=== PATIENT | female | born 1940 | race Caucasian/White ===

== ENCOUNTER 2016-08-29 13:35 | Inpatient (IN) | payer OTHER ==
[~2016-08-29] VITALS: Ht 160 cm; Wt 63.5 kg
[~2016-08-29 13:35] MED LIST: ALPR0.2583 PO; AMYL1CAP54 PO; ARIP10TA14 PO; DICY10CA59 PO; DOCU250C PO; HYDR-3698 PO; LUBI8CAP PO; METO-290 PO; OMEP20CA10 PO; ONDA4TAB5 PO; PRO40 PO; PSYL3.4P6 PO; SERT50TA12 PO; SIME80TA PO; SIMV10TA2 PO
[2016-08-29 13:52] VITALS: BP 148/69; PULSE 91; RESP 20; TEMP 97.8; O2SAT 97
--- NOTE | 2016-08-29 13:55 | NUR ---
Pt placed to ER bed 02 and to gown. Pt c/o sudden onset of generalized abdominal pain. BSx4, hyperactive. LBM x 2 days. Denies N/V/D. Pt's at bedside.
--- NOTE | 2016-08-29 14:00 | NUR ---
Dr. Gibson at bedside to assess pt.
[2016-08-29] MEDS ORDERED: PROCHLORPERAZINE EDISYLATE 10 MG/2 ML VIAL IVP ONE (14:15)
[2016-08-29] MEDS ORDERED: KETOROLAC TROMETHAMINE 30 MG VIAL IVP ONE (14:15)
[2016-08-29] MEDS ORDERED: ONDANSETRON HCL 4 MG/2 ML VIAL IVP ONE (14:15)
[2016-08-29] MEDS ORDERED: NACL 0.9% 1,000 ML IV ONE (14:15)
--- NOTE | 2016-08-29 14:20 | NUR ---
# 20 gauge angiocath placed to RAC. Use of asceptic technique. Opsite placed over site. Blood return noted. Blood for lab drawn from site. Flushed with 10 cc of normal saline. No evidence of infiltration noted. Patient tolerated well.
[2016-08-29 14:31] LABS: BASOPHILS % (AUTO) 0.5 % (0.0-2.0); EOSINOPHILS # (AUTO) 0.1 K/uL (0.0-0.4); EOSINOPHILS % (AUTO) 1.9 % (0.0-4.0); HEMATOCRIT 33.2 % (36-48); HEMOGLOBIN 11.6 g/dL (12.0-16.0); LYMPHOCYTES % (AUTO) 33.7 % (20.5-51.5); MEAN CORPUSCULAR HEMOGLOBIN 34 pg (27-31); MEAN CORPUSCULAR HGB CONC 35 % (32-36); MEAN CORPUSCULAR VOLUME 96 fL (79.0-98.0); MONOCYTES # (AUTO) 0.5 K/uL (0.0-1.0); MONOCYTES % (AUTO) 7.7 % (1.7-9.3); NEUTROPHILS # (AUTO) 3.4 K/uL (1.8-7.7); NEUTROPHILS % (AUTO) 56.2 % (40.0-70.0); PLATELET COUNT (AUTO) 260 K/uL (130-430); RED BLOOD CELL COUNT(AUTO) 3.47 MIL/uL (4.2-6.2); RED CELL DISTRIBUTION WIDTH 12.3 % (9.0-15.0)
[2016-08-29 14:39] LABS: ANION GAP 6 (5-15); CALCIUM 8.7 mg/dL (8.4-11.0); CHLORIDE 103 mmol/L (98-107); CREATININE 0.99 mg/dL (0.55-1.30); GLUCOSE 221 mg/dL (70-99); POTASSIUM 4.4 mmol/L (3.5-5.1); SODIUM SERUM 135 mmol/L (136-145); UREA NITROGEN, BLOOD 30 mg/dL (8-21)
--- NOTE | 2016-08-29 14:40 | NUR ---
Pt to CT via stretcher.
[2016-08-29 14:42] LABS: PROTHROMBIN TIME 10.7 SECS (9.5-12.5)
[2016-08-29 14:44] LABS: ALANINE AMINOTRANSFERASE 28 U/L (12-78); ALBUMIN 3.8 g/dL (3.4-4.8); AMYLASE 86 U/L (0-100); LIPASE 259 U/L (73-393); TOTAL BILIRUBIN 0.3 mg/dL (0.0-1.0); TOTAL PROTEIN, SERUM 7.1 g/dL (6.4-8.3)
--- NOTE | 2016-08-29 14:55 | NUR ---
Pt returns from CT. No needs verbalized at this time.
--- NOTE | 2016-08-29 15:15 | NUR ---
Pt resting quietly with eyes closed. Even and non-labored respirations. VSS. Pt.'s at bedside.
[2016-08-29 15:17] LABS: ASPARTATE AMINOTRANSFERASE 20 U/L (10-37)
--- NOTE | 2016-08-29 16:30 | NUR ---
Pt placed on bedside commode multiple times. Pt unable to void.
--- NOTE | 2016-08-29 16:42 | NUR ---
# 14 FR In and Out catheter with use of sterile technique. Immediate return of 50 ml clear yellow urine urine noted. Urine sample collected and sent to lab. Pt tolerated procedure well. Patient was unable to void on BSC though she does feel the urge to.
[2016-08-29 17:11] LABS: BILIRUBIN,URINE NEGATIVE (NEGATIVE); BLOOD, URINE NEGATIVE (NEGATIVE); CLARITY/URINE CLEAR (CLEAR); COLOR,URINE YELLOW (YELLOW); GLUCOSE,URINE NEGATIVE (NEGATIVE); KETONES,URINE NEGATIVE (NEGATIVE); LEUKOCYTE ESTERASE ,URINE NEGATIVE (NEGATIVE); NITRITE, URINE NEGATIVE (NEGATIVE); PROTEIN URINE NEGATIVE (NEGATIVE); UROBILINOGEN,URINE 0.2 (0.2-1.0)
[2016-08-29] MEDS ORDERED: MAG HYDROX/AL HYDROX/SIMETH 30 ML, LIDOCAINE VISCOUS 2% 15ML (PO) 10 ML, BELLADONNA ALK... PO ONE ×3 (17:30)
--- NOTE | 2016-08-29 18:00 | NUR ---
Pt resting quietly, eyes closed, even and non-labored respirations. Daughter at bedside, no needs verbalized. VSS.
--- NOTE | 2016-08-29 19:00 | NUR ---
Patient will be admitted to care of Dr. Llanos. Admitted to Med/Surg unit. Will go to room 135A. Belongings list completed. Summary report printed. Report given to LYNDSEY Damon.
[2016-08-29 19:08] VITALS: BP 158/69; PULSE 80; RESP 12; TEMP 98.3; O2SAT 96
--- NOTE | 2016-08-29 19:08 | NUR ---
Admission Note Received patient from ER with diagnosis of acute abdominal pain. Initial Plan of Care discussed-patient verbalized understanding. Family at bedside. Oriented to room, call light, pain management and safety.
[2016-08-29 19:14] VITALS: BP 158/69; PULSE 67; RESP 12; TEMP 98.3; O2SAT 97
[2016-08-29] MEDS ORDERED: ONDANSETRON HCL 4 MG/2 ML VIAL IVP PRN (19:45)
--- NOTE | 2016-08-29 20:00 | NUR ---
Initial PM Note Admission Assessment completed. No acute distress noted. No c/o pain at this time. No facial grimacing noted. Saline Lock is patent in RAC. Pt has Mika Score of 18. Will turn and reposition pt q 2hrs. Incontinent care will be provided as needed and Z guard will be utilized with incontinent care. Fall precautions are in place. Call light is with pt. Bed is in the lowest and locked positions. Three side rails are up and Bed alarm is on.
--- NOTE | 2016-08-29 20:20 | NUR ---
Consultation paged Reason for consultation: Omega. Renal Stones Was consult called: Yes Person who was notified: Ruth Consulting Physician: Guido Villareal; Nahid Quan is on-call. Recruiting Specialist Specialty: Urology Recruiting Specialist
[2016-08-29] MEDS: LUBIPROSTONE 8 MCG CAPSULE PO SCH (21:00)
--- NOTE | 2016-08-29 21:00 | NUR ---
Medication not Available HS Amitiza not given because it is not available in all four pyxes in [facility] unit. Also checked with Record Producer who stated it is not available and it can be started in AM.
[2016-08-29] MEDS ORDERED: TAMSULOSIN HCL 0.4 MG CAP PO ONE (21:45)
[2016-08-29] MEDS ORDERED: PANTOPRAZOLE SODIUM 40 MG/VIAL (PROTONIX) IVP ONE (21:45)
[2016-08-29] MEDS: PANTOPRAZOLE SODIUM 40 MG/VIAL (PROTONIX) IVP SCH (21:57)
[2016-08-29] MEDS: KCL 20 mEq in 0.45% NS 1000 mL 1,000 ML IV SCH (21:58)
[2016-08-29] MEDS: SIMVASTATIN 10 MG TABLET PO SCH (21:58)
[2016-08-29] MEDS: ALPRAZolam 0.25 MG TABLET PO SCH (21:58)
[2016-08-29] MEDS: TAMSULOSIN HCL 0.4 MG CAP PO SCH (21:58)
--- NOTE | 2016-08-29 22:30 | NUR ---
IV Restart IV site in RAC noted to be infiltrated and the Angiocath was discontinued intact. Pressure dressing was applied to the site. New IV line was restarted in Rt Hand with Angiocath 22g under sterile technique. Pt tolerated IV restart well. IVF is infusing well at 75ml/hr.
[2016-08-29 23:59] VITALS: BP 140/81; PULSE 68; RESP 20; TEMP 97.2; O2SAT 98
--- NOTE | 2016-08-30 00:30 | NUR ---
Rounds Pt is sleeping comfortably in bed. Fall precautions are in place and IVF is infusing well in Rt Hand.
--- NOTE | 2016-08-30 03:30 | NUR ---
Rounds Pt is resting comfortably in bed. Fall precautions are in place.
[2016-08-30 04:01] VITALS: BP 135/62; PULSE 66; RESP 18; TEMP 97.6; O2SAT 96
--- NOTE | 2016-08-30 04:50 | NUR ---
Rounds Pt is sleeping comfortably in bed. Fall precautions are in place and IVF is infusing well in Rt Hand.
[2016-08-30] MEDS: METOCLOPRAMIDE HCL 10 MG TABLET PO SCH ×3 (06:12→17:15)
--- NOTE | 2016-08-30 06:22 | NUR ---
Closing Note Pt is awake and resting comfortably in bed. No c/o pain or discomfort at this time. IVF is infusing well in RH. All pt's needs were attended to. No fall or injury noted this shift. Will endorse to day shift nurse.
[2016-08-30 06:28] LABS: BASOPHILS % (AUTO) 0.4 % (0.0-2.0); EOSINOPHILS # (AUTO) 0.2 K/uL (0.0-0.4); EOSINOPHILS % (AUTO) 2.5 % (0.0-4.0); HEMATOCRIT 32.4 % (36-48); HEMOGLOBIN 10.8 g/dL (12.0-16.0); LYMPHOCYTES % (AUTO) 32.5 % (20.5-51.5); MEAN CORPUSCULAR HEMOGLOBIN 32 pg (27-31); MEAN CORPUSCULAR HGB CONC 33 % (32-36); MEAN CORPUSCULAR VOLUME 96 fL (79.0-98.0); MONOCYTES # (AUTO) 0.4 K/uL (0.0-1.0); MONOCYTES % (AUTO) 6.8 % (1.7-9.3); NEUTROPHILS # (AUTO) 3.6 K/uL (1.8-7.7); NEUTROPHILS % (AUTO) 57.8 % (40.0-70.0); PLATELET COUNT (AUTO) 235 K/uL (130-430); RED BLOOD CELL COUNT(AUTO) 3.38 MIL/uL (4.2-6.2); RED CELL DISTRIBUTION WIDTH 12.7 % (9.0-15.0); WHITE BLOOD COUNT (AUTO) 6.2 K/uL (4.8-10.8)
[2016-08-30 06:41] LABS: ANION GAP 4 (5-15); CALCIUM 8.5 mg/dL (8.4-11.0); CHLORIDE 107 mmol/L (98-107); CREATININE 0.94 mg/dL (0.55-1.30); GLUCOSE 136 mg/dL (70-99); PHOSPHORUS 3.1 mg/dL (2.7-4.5); POTASSIUM 4.3 mmol/L (3.5-5.1); SODIUM SERUM 137 mmol/L (136-145); UREA NITROGEN, BLOOD 23 mg/dL (8-21)
[2016-08-30 08:00] VITALS: BP 156/73; PULSE 73; RESP 18; TEMP 97.7; O2SAT 98
--- NOTE | 2016-08-30 08:00 | NUR ---
OPENING NOTE: RECEIVED REPORT FROM NIGHT NURSE. PATIENT IS RESTING COMFORTABLY IN BED. NO S/S OF DISTRESS OR SOB. PATIENT IS AWAKE BUT CONFUSED. VITAL SIGNS WNL, ASSESSMENT COMPLETE. PATIENT EDUCATED ON USING CALL LIGHT FOR ASSISTANCE WITH NEEDS. CALL LIGHT IN REACH, BED IN LOWEST POSITION, AND WILL CONTINUE TO MONITOR.
[2016-08-30] MEDS: ENOXAPARIN SODIUM 40 MG/0.4 ML SYRINGE SUBCUT SCH (08:50)
[2016-08-30] MEDS: PANTOPRAZOLE SODIUM 40 MG/VIAL (PROTONIX) IVP SCH (08:50)
[2016-08-30] MEDS: SERTRALINE HCL 50 MG TABLET PO SCH (08:51)
[2016-08-30] MEDS: TAMSULOSIN HCL 0.4 MG CAP PO SCH (08:51)
[2016-08-30] MEDS: ALPRAZolam 0.25 MG TABLET PO SCH ×2 (08:51→21:25)
[2016-08-30] MEDS: ARIPiprazole 5 MG TAB PO SCH (08:51)
[2016-08-30] MEDS: LIPASE/PROTEASE/AMYLASE 1 CAP PO SCH ×3 (08:51→17:15)
[2016-08-30] MEDS: PSYLLIUM HUSK 1 PKT PACKET PO SCH (08:51)
[2016-08-30] MEDS: DOCUSATE SODIUM 250 MG CAPSULE PO SCH (08:51)
[2016-08-30] MEDS: LUBIPROSTONE 8 MCG CAPSULE PO SCH ×2 (08:52→21:00)
--- NOTE | 2016-08-30 10:00 | NUR ---
NOTE: PATIENT IS RESTING COMFORTABLY IN BED. NO S/S OF DISTRESS OR SOB. PATIENT HAS BEEN TRYING TO GET UP OUT OF BED. PHYSICAL THERAPY IN THE ROOM TO HELP HER. EDUCATED ON USING CALL LIGHT FOR HELP. BED ALARM IS ON, CALL LIGHT IN REACH, BED IN LOWEST POSITION, AND WILL CONTINUE TO MONITOR.
[2016-08-30 11:38] VITALS: BP 142/60; PULSE 68; RESP 19; TEMP 97; O2SAT 100
--- NOTE | 2016-08-30 11:38 | NUR ---
ORDERS LIZ ZHANG FOR DR. ARBOLEDA CALLED AND ORDERED KUB. ORDERS NOTED AND CARRIED OUT.
[2016-08-30] MEDS: KCL 20 mEq in 0.45% NS 1000 mL 1,000 ML IV SCH ×2 (11:45→23:17)
[2016-08-30] MEDS: KETOROLAC TROMETHAMINE 15 MG VIAL IVP PRN ×2 (11:49→21:30)
--- NOTE | 2016-08-30 12:00 | NUR ---
NOTE: PATIENT IS RESTING COMFORTABLY IN BED. NO S.S OF DISTRESS OR SOB. PATIENT C/O OF PAIN. PAIN MEDICATION WAS GIVEN. CALL LIGHT IN REACH, BED IN LOWEST POSITION, AND WILL CONTINUE TO MONITOR.
--- NOTE | 2016-08-30 12:34 | NUR ---
Dr Llanos paged re patients abdominal pain. Dr Martini is wildlife conservation officer per exchange
[2016-08-30] MEDS ORDERED: MILK OF MAGNESIA 30 ML UDC PO ONE (13:30)
--- NOTE | 2016-08-30 14:00 | NUR ---
NOTE: PATIENT IS RESTING COMFORTABLY IN BED. NO S/S OF DISTRESS OR SOB. PATIENT IS AWAKE. FAMILY AT BEDSIDE. CALL LIGHT IN REACH, BED IN LOWEST POSITION, AND WILL CONTINUE TO MONITOR.
[2016-08-30 15:32] VITALS: BP 133/79; PULSE 92; RESP 19; TEMP 98.3; O2SAT 97
--- NOTE | 2016-08-30 15:57 | NUR ---
Nutrition Update Mika Scale 18 noted Pt was admitted with acute abdomen Diet: clear liquid BMI: 24.8 kg/m2 RD to follow up per nutrition care standards.
[2016-08-30 15:59] VITALS: BP 133/62; PULSE 90; RESP 19; TEMP 97.4; O2SAT 99
--- NOTE | 2016-08-30 18:19 | NUR ---
CLOSING NOTE: PATIENT WAS MOVED TO ROOM 132B FOR SAFETY PRECAUTIONS. PATIENT IS RESTING COMFORTABLY IN BED. NO S/S OF DISTRESS OR SOB. PATIENT IS AWAKE BUT CONFUSED. CALL LIGHT IN REACH, BED IN LOWEST POSITION, AND WILL GIVE REPORT TO NIGHT NURSE.
[2016-08-30 19:37] VITALS: BP 157/82; PULSE 107; RESP 19; TEMP 97.7; O2SAT 99
--- NOTE | 2016-08-30 19:48 | NUR ---
OPENING NOTE Pt. and bedside report received from day shift nurse. Pt. is resting quietly in bed with no s/s of acute distress. Plan of care and safety measures discussed with pt. Educated pt. on how to use call light for needs. Sitter present at bedside. Will continue to monitor.
[2016-08-30] MEDS: MILK OF MAGNESIA 30 ML UDC PO SCH (21:25)
[2016-08-30] MEDS: SIMVASTATIN 10 MG TABLET PO SCH (21:25)
--- NOTE | 2016-08-30 22:00 | NUR ---
DUE MEDS/TORADOL Due meds and pain medication adminstered by Nelson Moore RN. See EMAR.
[2016-08-31] VITALS (8 sets, daily range): BP systolic 140–153; BP diastolic 61–94; PULSE 93–118; RESP 18–20; TEMP 97.2–98.3; O2SAT 92–100
--- NOTE | 2016-08-31 00:19 | NUR ---
BEDSIDE COMMODE Pt. was assisted to bedside commode by ANGELIA Donahue and marcia Dietrich at bedside. No s/s of acute distress. Safety measures in place. Will continue to monitor.
--- NOTE | 2016-08-31 00:59 | NUR ---
EVELINE GREGORY/PT. C/O PAIN Pt. is crying with c/o "04/07" pain to abdomen. Pt. educated Toradol is not due at this time. Will page to report.
--- NOTE | 2016-08-31 01:01 | NUR ---
PAGED DR PITTS, JAD SEGOVIA.
--- NOTE | 2016-08-31 01:07 | NUR ---
GI CONSULT: DR PATRICIA CONSULT FOR DR PATRICIA WAS CALLED, RE ABDOMINAL PAIN JAD FINK
--- NOTE | 2016-08-31 01:09 | NUR ---
SPOKE TO DR. GISSELLE Martini is covering for Dr. Llanos. Reported that Toradol was given and is not effective; pt. currently crying and is stating pain is "10/10" to abdomen. Dr. Martini ordered Morphine 4mg IVP to be given every four hours as needed for severe (7-10) pain and for a consult with Dr. Walters for GI consult. Will carry out.
[2016-08-31] MEDS: MORPHINE 4 MG/ML INJ. SYRINGE IVP PRN ×4 (01:22→22:33)
--- NOTE | 2016-08-31 01:37 | NUR ---
PAIN Pt. given Morphine IVP as ordered PRN for c/o "10/10" severe pain to abdomen; see eMAR. Educated pt. regarding medication and s/e. Safety measures in place. Bed alarm on. Sitter present at bedside. Will continue to monitor.
--- NOTE | 2016-08-31 02:06 | NUR ---
ROUNDS Pt. is resting quietly in bed with eyes closed. Respirations are even and unlabored with visible chest rise and fall. No s/s of acute distress. Safety measures in place. Sitter present at bedside. Bed alarm on. Room near nurses station. Will continue to monitor.
--- NOTE | 2016-08-31 03:46 | NUR ---
ROUNDS Pt. is awake, resting quietly in bed with no s/s of acute distress. Safety measures in place. Sitter present at bedside. Bed alarm on. Room near nurses station. Will continue to monitor.
--- NOTE | 2016-08-31 04:03 | NUR ---
INCONTINENCE CARE CLAM TREADER at bedside providing incontinence care. Sitter also at bedside. No s/s of acute distress. Will continue to monitor.
--- NOTE | 2016-08-31 05:43 | NUR ---
ROUNDS Pt. is awake, resting quietly in bed with no s/s of acute distress. Safety measures in place. Sitter at bedside. Will continue to monitor.
[2016-08-31] MEDS: METOCLOPRAMIDE HCL 10 MG TABLET PO SCH ×3 (06:24→17:22)
[2016-08-31 06:49] LABS: ANION GAP 6 (5-15); CALCIUM 8.5 mg/dL (8.4-11.0); CHLORIDE 104 mmol/L (98-107); CREATININE 0.97 mg/dL (0.55-1.30); GLUCOSE 141 mg/dL (70-99); POTASSIUM 4.2 mmol/L (3.5-5.1); SODIUM SERUM 137 mmol/L (136-145); UREA NITROGEN, BLOOD 16 mg/dL (8-21)
[2016-08-31 06:54] LABS: BASOPHILS % (AUTO) 0.5 % (0.0-2.0); EOSINOPHILS # (AUTO) 0.1 K/uL (0.0-0.4); EOSINOPHILS % (AUTO) 1.3 % (0.0-4.0); HEMATOCRIT 32.3 % (36-48); HEMOGLOBIN 10.6 g/dL (12.0-16.0); LYMPHOCYTES # (AUTO) 1.9 K/uL (1.0-5.5); LYMPHOCYTES % (AUTO) 31.3 % (20.5-51.5); MEAN CORPUSCULAR HEMOGLOBIN 32 pg (27-31); MEAN CORPUSCULAR HGB CONC 33 % (32-36); MEAN CORPUSCULAR VOLUME 96 fL (79.0-98.0); MONOCYTES # (AUTO) 0.5 K/uL (0.0-1.0); MONOCYTES % (AUTO) 7.7 % (1.7-9.3); NEUTROPHILS # (AUTO) 3.4 K/uL (1.8-7.7); NEUTROPHILS % (AUTO) 59.2 % (40.0-70.0); PLATELET COUNT (AUTO) 233 K/uL (130-430); RED BLOOD CELL COUNT(AUTO) 3.35 MIL/uL (4.2-6.2); RED CELL DISTRIBUTION WIDTH 12.8 % (9.0-15.0); WHITE BLOOD COUNT (AUTO) 5.9 K/uL (4.8-10.8)
--- NOTE | 2016-08-31 06:57 | NUR ---
CLOSING NOTES All needs met throughout shift. Due meds administered as ordered. Pt. tolerated well. Safety measures in place. Bed alarm on. Sitter present at bedside. Room near nurses station. Will endorse care to oncoming day shift nurse.
--- NOTE | 2016-08-31 08:00 | NUR ---
INITIAL NOTE PT LAYING IN BED, NO S/S OF DISTRESS OR COMPLAIN OF PAIN NOTED, ALERT AND ORIENTED TO NAME, BHUTANESE SPEAKING, SITTER AT BEDSIDE. OV FLUIDS INFUSING TO RIGHT HAND, PATENT, NO S/S OF INFILTRATION NOTED, SAFETY MEASURES IN PLACE, BED IN LOW POSITION AND LOCKED, PT ORIENTED TO USE OF CALL LIGHT AND PLACED WITHIN REACH, SITTER AT BEDSIDE FOR SAFETY, WILL CONTINUE TO MONITOR.
[2016-08-31] MEDS: SERTRALINE HCL 50 MG TABLET PO SCH (08:16)
[2016-08-31] MEDS: PSYLLIUM HUSK 1 PKT PACKET PO SCH (08:16)
[2016-08-31] MEDS: MILK OF MAGNESIA 30 ML UDC PO SCH ×2 (08:16→22:37)
[2016-08-31] MEDS: ALPRAZolam 0.25 MG TABLET PO SCH ×2 (08:17→22:38)
[2016-08-31] MEDS: DOCUSATE SODIUM 250 MG CAPSULE PO SCH (08:17)
[2016-08-31] MEDS: LIPASE/PROTEASE/AMYLASE 1 CAP PO SCH ×3 (08:17→17:22)
[2016-08-31] MEDS: TAMSULOSIN HCL 0.4 MG CAP PO SCH (08:17)
[2016-08-31] MEDS: ARIPiprazole 5 MG TAB PO SCH (08:17)
[2016-08-31] MEDS: PANTOPRAZOLE SODIUM 40 MG/VIAL (PROTONIX) IVP SCH (08:18)
[2016-08-31] MEDS: ENOXAPARIN SODIUM 40 MG/0.4 ML SYRINGE SUBCUT SCH (08:18)
--- NOTE | 2016-08-31 10:00 | NUR ---
Family at bedside, Pt seems calm at the moment, no s/s of distress or combative behavior noted , sitter at bedside, will continueto monitor.
[2016-08-31] MEDS: LUBIPROSTONE 8 MCG CAPSULE PO SCH ×2 (10:09→21:00)
[2016-08-31] MEDS ORDERED: MAGNESIUM CITRATE 300 ML ORAL SOLUTION PO ONE (11:15)
[2016-08-31] MEDS ORDERED: BISACODYL 10 MG/SUPPOSITORY RC ONE (11:15)
--- NOTE | 2016-08-31 11:15 | NUR ---
Pt is restless and agitated, complaining of abdominal pain. will administer prn pain medication and reassess.
--- NOTE | 2016-08-31 13:30 | NUR ---
Administered suppository, pt tolerated well. attempted to have patient drink the magnesium citrate oral solution, pt had a few sips, will continue to try and get patient to drink medication.
--- NOTE | 2016-08-31 15:00 | NUR ---
Rounds Sitter at bedside, pt is restless and agitated, trying to get out of bed, safety measures in place, bed i low position and locked, side rails up x4, sitter at bedside, call light within reach, will continue to monitor,.
[2016-08-31] MEDS: KCL 20 mEq in 0.45% NS 1000 mL 1,000 ML IV SCH (15:14)
--- NOTE | 2016-08-31 17:30 | NUR ---
Pain management Pt complains of abdominal pain 04/07, administered appropriate pain medication Administered appropriate time frame medications with amaridionicio, pt tolerated well. Finished the rest of her meal with CARE AIDE assisting feeding, sitter at bedside, bed in low position and locked, safety measures in -place, call light within reach, will continue to monitor.
--- NOTE | 2016-08-31 18:30 | NUR ---
DR GISSELLE HAILE
--- NOTE | 2016-08-31 19:00 | NUR ---
CLOSING NOTE PT LAYING IN BED, ALERT, CONFUSED AND DISORIENTED, PT SEEMS RESTLESS AND AGITATED. NO COMPLAINT OF PAIN, VSS. ALL NEEDS ATTENDED TO THROUGH OUT SHIFT, SAFETY AND FALL PRECAUTIONS MAINTAINED, SITTER AT BEDSIDE, BED IN LOW POSITION AND LOCKED, CALL LIGHT WITHIN REACH, WILL GIVE REPORT TO FOLLOWING SHIFT.
--- NOTE | 2016-08-31 20:00 | NUR ---
pt.assessed.v/s assessed.values w/in normal limits.iv access assessed patent.pt.presents o2 sat / room air;96% pt.presents l;anguage barrier:extant:estonian;sole language.pt.presents aloc:severe status.pt.cannot provide correct/appropriate response 2 q's.2 continue w/ the administration of mag-citrate:constipation.call light placed w/in pt's reach.
--- NOTE | 2016-08-31 21:00 | NUR ---
2100p medications administered.po possible dysphagia.slow intake.mag-citrate continued administration.pt.presents constipation iv access line positional assessed patent.call light placed w/in pt's reach.
--- NOTE | 2016-08-31 22:00 | NUR ---
pt.assessed.pt.repositioned.pt.presents quiescent affect;calm,asleep.mag-citrate po administered completed. call light placed w/in pt's reach.
[2016-08-31] MEDS: SIMVASTATIN 10 MG TABLET PO SCH (22:38)
--- NOTE | 2016-09-01 | NUR ---
pt.assessd,pt.presents quiescent affect;calm,asleep.iv assessed.positional.v/s assessed:values w/in normal limits. call light placed w/in pt's reach. Addendum: 09/01/16 at 0724 by Jigar Cheema RN pt.repositioned.
--- NOTE | 2016-09-01 02:00 | NUR ---
pt.assessed.pt.presents quiescent affect;calm,asleep.iv access positional re arranghed 2 allow iv fluids 2 flow. pt.repositioned.call light placed w.in pt's reach.
[2016-09-01] MEDS: KCL 20 mEq in 0.45% NS 1000 mL 1,000 ML IV SCH (03:20)
[2016-09-01 04:00] VITALS: BP 153/72; PULSE 82; RESP 16; TEMP 98.8; O2SAT 93
--- NOTE | 2016-09-01 04:00 | NUR ---
pt.assessed.pt.presents quiescent affect;calm,asleep.iv line positional:rearranged.pt.repositioned. call light placed w/in pt's reach.
--- NOTE | 2016-09-01 06:00 | NUR ---
pt.assessed.pt.presents quiescent affect;calm,asleep.pt.prested bopwel movements x3:w/in the pharmacy account director. pt.presents aloc severe status.call elayne w/in pt's reach. Addendum: 09/01/16 at 0725 by Jigar Cheema RN pt.repositioned.
[2016-09-01 08:05] VITALS: BP 176/53; PULSE 83; RESP 17; TEMP 98.7; O2SAT 94
--- NOTE | 2016-09-01 08:07 | NUR ---
AM ROUNDS Patient received, alert awake and oriented x1. Patient is swazi speaking, denies pain at this time. Respirations even and unlabored. IV site patent intact and infusing fluids as ordered. Abdomen soft and non distended, tender to touch. Patient repositioned with pillow support. Plan of care unable to be discussed due to mental status, no family at bedside. Safety and fall precautions in place, side rails upx3, call light within reach. Patient closest to nurses station, will continue to monitor.
[2016-09-01] MEDS: PANTOPRAZOLE SODIUM 40 MG/VIAL (PROTONIX) IVP SCH (10:14)
[2016-09-01] MEDS: ARIPiprazole 5 MG TAB PO SCH (10:15)
[2016-09-01] MEDS: MILK OF MAGNESIA 30 ML UDC PO SCH ×2 (10:16→20:20)
[2016-09-01] MEDS: PSYLLIUM HUSK 1 PKT PACKET PO SCH (10:16)
[2016-09-01] MEDS: SERTRALINE HCL 50 MG TABLET PO SCH (10:17)
[2016-09-01] MEDS: ENOXAPARIN SODIUM 40 MG/0.4 ML SYRINGE SUBCUT SCH (10:17)
[2016-09-01] MEDS: ALPRAZolam 0.25 MG TABLET PO SCH ×2 (10:17→20:21)
[2016-09-01] MEDS: DOCUSATE SODIUM 250 MG CAPSULE PO SCH (10:18)
[2016-09-01] MEDS: TAMSULOSIN HCL 0.4 MG CAP PO SCH (10:18)
[2016-09-01] MEDS: KETOROLAC TROMETHAMINE 15 MG VIAL IVP PRN (10:19)
[2016-09-01] MEDS: METOCLOPRAMIDE HCL 10 MG TABLET PO SCH ×2 (10:22→17:40)
[2016-09-01] MEDS: LIPASE/PROTEASE/AMYLASE 1 CAP PO SCH ×3 (10:22→17:39)
[2016-09-01] MEDS: LUBIPROSTONE 8 MCG CAPSULE PO SCH ×2 (10:23→20:20)
--- NOTE | 2016-09-01 10:41 | NUR ---
ROUNDS Patient stated 12/06 headache, medication given, will reassess. IVF infusing as ordered. No further needs at this time. Family at bedside. Safety and fall precautions in place, call light within reach. Will continue to monitor.
[2016-09-01 11:22] VITALS: BP 139/55; PULSE 83; RESP 18; TEMP 98.2; O2SAT 93
--- NOTE | 2016-09-01 12:01 | NUR ---
MIKA SCALE EVALUATION: Patient evaluated for a low Mika score of 11. Patient was awake, alert, oriented and received in a [place] bed with an Atmos-Air 9000 mattress. Patient is unable to turn independently. Skin is fair. Recommend reposition patient side to side only every 2 hours with pillow support and off-load pressure areas with pillows for pressure re-distribution. Elevate, off-load and float bilateral heels with pillows. Use moisture barrier cream on buttocks and other moisture susceptible areas QID and as needed for soiling. Perform skin care and monitor skin integrity Q shift. Place patient on a low air-loss mattress.
--- NOTE | 2016-09-01 12:08 | NUR ---
ROUNDS Patient resting at this time, no facial grimace noted, patient denies pain at this time. Safety and fall precautions in place, call light within reach, family at bedside. Safety and fall precautions in place, call light within reach.
--- NOTE | 2016-09-01 13:40 | NUR ---
CORRECTION: TX PROVIDED BY TIFFANIE GAFFNEY WOOLEN SUITING SHRINKER Addendum: 09/02/16 at 1340 by Naya Goode PT Amended: Links added.
--- NOTE | 2016-09-01 14:20 | NUR ---
ROUNDS Patient restless and confused. Reoriented patient to time and location. Patient refused medications at this time. No further needs. Safety and fall precautions in place, call light within reach, side rails up x3, patient closest to nurses station. Will continue to monitor.
--- NOTE | 2016-09-01 16:14 | NUR ---
PHYSICAL THERAPY CO-SIGN The Physical Therapy Progress Notes documented by [employer] have been reviewed. Reviewed/Co-Signed by: Naya Goode Documentation Done by:LEE FRANCISCO MAJOR DONOR COORDINATOR POC REVIEWED W/MAJOR DONOR COORDINATOR; PROGRESS LIAM.; WILL BENEFIT W/ P.T. Addendum: 09/01/16 at 1615 by Naya Goode PT Amended: Links added.
[2016-09-01 16:28] VITALS: BP 154/84; PULSE 115; RESP 18; TEMP 98.8; O2SAT 93
--- NOTE | 2016-09-01 18:08 | NUR ---
CLOSING NOTE Patient awake and alert x1 at this time. Patient tolerated PO medications well, no swallowing difficulties. Patient denies pain at this time. Dr. Llanos at bedside, new orders noted. IVF infusing as ordered. Family at bedside. No further needs at this time. All needs met throughout shift. Safety and fall precautions in place, call light within reach. Will endorse to next shift.
--- NOTE | 2016-09-01 19:30 | NUR ---
initial nursing notes: Patient is awake. Patient is oriented to name. Reoriented patiend to place, date and reason for being in the hospital. Patient has IV fluid infusing on the right forearm. Sitter/staff at the patient's bedside at all times for patient's safety.
[2016-09-01 19:56] VITALS: BP 151/86; PULSE 80; RESP 16; TEMP 99.8; O2SAT 94
[2016-09-01] MEDS: SIMVASTATIN 10 MG TABLET PO SCH (20:20)
--- NOTE | 2016-09-01 21:30 | NUR ---
nursing rounds: Patient resting in bed. Patient is being repositioned every 2 hours to prevent skin redness or pressure sore formation.
--- NOTE | 2016-09-01 23:30 | NUR ---
nursing rounds: Patient resting in bed. Patient denies of having pain. Sitter/staff present at patient's bedside.
[2016-09-02 00:13] VITALS: BP 157/86; PULSE 96; RESP 16; TEMP 98.9; O2SAT 95
--- NOTE | 2016-09-02 01:30 | NUR ---
nursing rounds: New IV access started on the patient's right hand since right forearm IV access came off.
[2016-09-02] MEDS: KCL 20 mEq in 0.45% NS 1000 mL 1,000 ML IV SCH (03:28)
--- NOTE | 2016-09-02 03:30 | NUR ---
nursing rounds: Patient is sleeping in bed. Kept siderails up X 3 for patient's safety.
[2016-09-02 04:38] VITALS: BP 141/70; PULSE 103; RESP 20; TEMP 98.4; O2SAT 94
--- NOTE | 2016-09-02 05:30 | NUR ---
nursing rounds: Patient is asleep in bed. Patient has no shortness of breath.
[2016-09-02] MEDS: METOCLOPRAMIDE HCL 10 MG TABLET PO SCH ×2 (06:08→12:08)
--- NOTE | 2016-09-02 07:41 | NUR ---
closing nursing notes: Patient calmly resting in bed. Patient is in no acute respiratory distress. No episodes of fall and no injuries throughout the crossbar switch adjuster. Provided nursing report to incoming morning shift nurse, LYNDSEY Hilliard, at patient's bedside.
--- NOTE | 2016-09-02 08:00 | NUR ---
AM ROUNDS: PATIENT SLEEPING DURING ROUNDS. IVF ON GOING AT RIGHT HAND INTACT. NO DISTRESS.
[2016-09-02] MEDS: MORPHINE 4 MG/ML INJ. SYRINGE IVP PRN (08:12)
[2016-09-02] MEDS: DOCUSATE SODIUM 250 MG CAPSULE PO SCH (09:00)
[2016-09-02] MEDS: MILK OF MAGNESIA 30 ML UDC PO SCH (09:00)
[2016-09-02] MEDS: ENOXAPARIN SODIUM 40 MG/0.4 ML SYRINGE SUBCUT SCH (09:10)
[2016-09-02] MEDS: PANTOPRAZOLE SODIUM 40 MG/VIAL (PROTONIX) IVP SCH (09:10)
[2016-09-02 09:11] VITALS: BP 116/88; PULSE 76; RESP 19; TEMP 99.3; O2SAT 96
[2016-09-02] MEDS ORDERED: IOHEXOL 100 ML IV ONE (09:58)
--- NOTE | 2016-09-02 10:00 | NUR ---
ROUNDS: WITH DIECAST MACHINE OPERATOR AT BEDSIDE. STABLE. NEEDS FREQUENT OBSERVATION.
--- NOTE | 2016-09-02 12:00 | NUR ---
ROUNDS: RESTING IN THE BED. SPEAKS MORE ESTONIAN. OFFERED LUNCH BUT PATIENT REFUSED,STATED NOT HUNGRY.
[2016-09-02] MEDS: ARIPiprazole 5 MG TAB PO SCH (12:06)
[2016-09-02] MEDS: TAMSULOSIN HCL 0.4 MG CAP PO SCH (12:06)
[2016-09-02] MEDS: ALPRAZolam 0.25 MG TABLET PO SCH (12:06)
[2016-09-02] MEDS: LUBIPROSTONE 8 MCG CAPSULE PO SCH (12:07)
[2016-09-02] MEDS: PSYLLIUM HUSK 1 PKT PACKET PO SCH (12:07)
[2016-09-02] MEDS: SERTRALINE HCL 50 MG TABLET PO SCH (12:07)
[2016-09-02] MEDS: LIPASE/PROTEASE/AMYLASE 1 CAP PO SCH (12:08)
--- NOTE | 2016-09-02 12:25 | NUR ---
meds: took some of po crushed meds and patient refused some the meds.
--- NOTE | 2016-09-02 12:48 | NUR ---
MD ROUNDS: INFORMED MD THAT PATIENT REFUSED TO EAT LUNCH AND THAT PATIENT STATED NOT HUNGRY. WITH ORDERS DC HOME AND F/U WITH DR JARVIS NEXT WEEK.MD SPOKE TO DAUGHTER AT BEDSIDE AND UPDATES GIVEN AND AWARE OF DC ORDER.
--- NOTE | 2016-09-02 12:54 | NUR ---
rounds: daughter came and assisted during meal time.
[2016-09-02 13:02] VITALS: BP 145/77; PULSE 108; RESP 16; TEMP 97.3
[2016-09-02 13:41] VITALS: BP 140/77; PULSE 96; RESP 19; TEMP 97.3; O2SAT 96
--- NOTE | 2016-09-02 14:07 | NUR ---
DC NOTES: TRANSITIONAL CARE PACKET GIVEN TO PATIENT'S DAUGHTER JACQUELYN,VERBALIZED UNDERSTANDING OF THE INSTRUCTIONS. IV REMOVED,DRY GAUZE APPLIED,NO BLEEDING NOTED.ACCOMPANIED HOME BY DAUGHTER PATIENT IN STABLE CONDITION.
--- NOTE | 2016-09-02 17:11 | NUR ---
PHYSICAL THERAPY CO-SIGN The Physical Therapy Progress Notes documented by Wool Sampler have been reviewed. I CONCUR W/BELT MACHINE OPERATOR NOTE Reviewed/Co-Signed by: Zoie Caraballo PT Documentation Done by: BRITTON ROSA BELT MACHINE OPERATOR Addendum: 09/03/16 at 1517 by Zoie Caraballo PT Amended: Links added.
--- NOTE | 2016-09-03 14:49 | NUR ---
Discharge Follow Up Phone Call ACCOUNTS PAYABLE ANALYST phoned patient, , and spoke with Radha, patient's daughter. Radha stated patient has been feeling weak and not wanting to get out of bed. Radha and patient's other daughter have been encouraging patient and helping her and she is moving and feeling better. Radha prefers to make the follow up appointment with Dr Llanos. Patient lives at home with her and gets help from her daughters and Radha pays from her own pocket for additional help. ACCOUNTS PAYABLE ANALYST explored if patient may be Medi-Phu eligible. It sounds as if patient and may be eligible. ACCOUNTS PAYABLE ANALYST referred the case to [facility]. ACCOUNTS PAYABLE ANALYST also provided Radha with the contact information for [facility] once patient has been determined to be Medi-Phu eligible.
== END 2016-09-02 14:07 | disposition home or self-care (01) | DRG 694 ==
LOC: SED 13:35 → SMU 18:23
PROVIDERS: ADMIT Family Medicine; ATTEND Family Medicine
DX: N20.0 Calculus of kidney (principal); F03.90 Unspecified dementia, unspecified severity, without behavioral disturbance, psychotic disturbance, mood disturbance, and anxiety; E78.5 Hyperlipidemia, unspecified; I10 Essential (primary) hypertension; F32.9 Major depressive disorder, single episode, unspecified; F41.8 Other specified anxiety disorders; K59.09 Other constipation; K21.9 Gastro-esophageal reflux disease without esophagitis; E11.9 Type 2 diabetes mellitus without complications; Z88.5 Allergy status to narcotic agent; Z88.0 Allergy status to penicillin; Z88.2 Allergy status to sulfonamides; Z88.1 Allergy status to other antibiotic agents; Z88.8 Allergy status to other drugs, medicaments and biological substances; Z90.710 Acquired absence of both cervix and uterus
CPT/HCPCS: 36415; 72191; 74000-TC; 74175; 76700-TC; 80048; 80053; 81003; 82150-TC; 83690-TC; 83735-TC; 84100-TC; 85025; 85610-TC; 85730-TC; 96361; 96374; 96375; 97110-GP; 97116-GP; 97530-GP; 99285; C9113; J0780; J1650; J1885; J2001; J2270; J2405; J3480; J7030; J8597; Q9967

== ENCOUNTER 2016-10-24 15:59 | Emergency (ER) | payer OTHER ==
[~2016-10-24] VITALS: Ht 149.9 cm; Wt 70.3 kg
[2016-10-24 16:05] VITALS: BP 155/67; PULSE 80; RESP 14; TEMP 98.2; O2SAT 98
--- NOTE | 2016-10-24 16:15 | NUR ---
Patient AAOx1 to name, confused (baseline), non-Estonian speaking, hx of dementia. Daughter present at bedside to translate. Patient c/o abdominal pain x3 days. Denies nausea, diarrhea, vomitting. Patient also states she has not had a bowel movement in a while but forgot the last time she had one. Abdomen tender to touch. Bowel sounds present. VS stable, afebrile. Will continue to monitor. Addendum: 10/24/16 at 1702 by BASIL No other complaints/injuries per patient or noted.
--- NOTE | 2016-10-24 16:52 | NUR ---
Patient off unit to radiology
--- NOTE | 2016-10-24 17:07 | NUR ---
Patient return from radiology. No acute distress noted.
[2016-10-24 17:08] LABS: BASOPHILS % (AUTO) 0.6 % (0.0-2.0); EOSINOPHILS # (AUTO) 0.1 K/uL (0.0-0.4); EOSINOPHILS % (AUTO) 1.5 % (0.0-4.0); HEMATOCRIT 33.8 % (36-48); HEMOGLOBIN 11.5 g/dL (12.0-16.0); LYMPHOCYTES # (AUTO) 2.2 K/uL (1.0-5.5); LYMPHOCYTES % (AUTO) 32.4 % (20.5-51.5); MEAN CORPUSCULAR HEMOGLOBIN 33 pg (27-31); MEAN CORPUSCULAR HGB CONC 34 % (32-36); MEAN CORPUSCULAR VOLUME 96 fL (79.0-98.0); MONOCYTES # (AUTO) 0.5 K/uL (0.0-1.0); MONOCYTES % (AUTO) 7.3 % (1.7-9.3); NEUTROPHILS # (AUTO) 3.9 K/uL (1.8-7.7); NEUTROPHILS % (AUTO) 58.2 % (40.0-70.0); PLATELET COUNT (AUTO) 262 K/uL (130-430); RED BLOOD CELL COUNT(AUTO) 3.53 MIL/uL (4.2-6.2); RED CELL DISTRIBUTION WIDTH 12.8 % (9.0-15.0); WHITE BLOOD COUNT (AUTO) 6.7 K/uL (4.8-10.8)
--- NOTE | 2016-10-24 17:08 | NUR ---
CXR at bedside.
[2016-10-24 17:13] LABS: PROTHROMBIN TIME 10.8 SECS (9.5-12.5)
[2016-10-24 17:21] LABS: ANION GAP 10 (5-15); CALCIUM 8.9 mg/dL (8.4-11.0); CHLORIDE 102 mmol/L (98-107); CREATININE 0.92 mg/dL (0.55-1.30); GLUCOSE 138 mg/dL (70-99); SODIUM SERUM 138 mmol/L (136-145); UREA NITROGEN, BLOOD 21 mg/dL (8-21)
[2016-10-24 17:28] LABS: ALANINE AMINOTRANSFERASE 18 U/L (12-78); ALBUMIN 3.6 g/dL (3.4-4.8); ASPARTATE AMINOTRANSFERASE 17 U/L (10-37); LIPASE 218 U/L (73-393); TOTAL BILIRUBIN 0.3 mg/dL (0.0-1.0); TOTAL PROTEIN, SERUM 7.1 g/dL (6.4-8.3)
[2016-10-24 17:31] LABS: BILIRUBIN,URINE NEGATIVE (NEGATIVE); BLOOD, URINE NEGATIVE (NEGATIVE); CLARITY/URINE HAZY (CLEAR); COLOR,URINE YELLOW (YELLOW); GLUCOSE,URINE NEGATIVE (NEGATIVE); KETONES,URINE NEGATIVE (NEGATIVE); LEUKOCYTE ESTERASE ,URINE TRACE (NEGATIVE); NITRITE, URINE NEGATIVE (NEGATIVE); PROTEIN URINE NEGATIVE (NEGATIVE); UROBILINOGEN,URINE 0.2 (0.2-1.0)
[2016-10-24 17:41] LABS: BACTERIA,URINE MANY /HPF (None Seen); MUCUS,URINE None Seen /LPF (None Seen); RBC,URINE NONE SEEN /HPF (0-3)
[2016-10-24] MEDS ORDERED: MAGNESIUM CITRATE 300 ML ORAL SOLUTION PO ONE (17:45)
[2016-10-24 17:55] VITALS: BP 157/68; PULSE 73; RESP 15; TEMP 97.3; O2SAT 97
--- NOTE | 2016-10-24 17:55 | NUR ---
Patient given written and verbal discharge instructions and verbalizes understanding. ER MD discussed with patient the results and treatment provided. Patient in stable condition. ID arm band removed. Rx of levaquin given. Patient educated on pain management and to follow up with PMD. Pain Scale 0/10. Opportunity for questions provided and answered.
[2016-10-24] MEDS ORDERED: LEVOFLOXACIN 500 MG TABLET PO ONE (18:00)
== END 2016-10-24 17:55 | disposition home or self-care (01) ==
LOC: SED 15:59
DX: N39.0 Urinary tract infection, site not specified (principal); K59.00 Constipation, unspecified; F03.90 Unspecified dementia, unspecified severity, without behavioral disturbance, psychotic disturbance, mood disturbance, and anxiety; E11.9 Type 2 diabetes mellitus without complications; K21.9 Gastro-esophageal reflux disease without esophagitis; I10 Essential (primary) hypertension; Z88.0 Allergy status to penicillin; Z88.2 Allergy status to sulfonamides; Z88.1 Allergy status to other antibiotic agents; Z88.5 Allergy status to narcotic agent
CPT/HCPCS: 36415; 71010; 80053; 81000-TC; 82962; 83605; 83690-TC; 85025; 85610-TC; 87040-TC; 87086; 93005; 99285

== ENCOUNTER 2017-01-26 02:37 | Emergency (ER) | payer OTHER ==
[~2017-01-26] VITALS: Ht 147.3 cm; Wt 68.0 kg
[2017-01-26 02:37] VITALS: BP_SYST 141
[~2017-01-26 02:37] MED LIST changes: -DICY10CA59 PO; -OMEP20CA10 PO; -SIME80TA PO
--- NOTE | 2017-01-26 02:40 | NUR ---
Patient to ER bed 8 to gown for evaluation. Side rails up. Report given to Loretta SOLORIO.
--- NOTE | 2017-01-26 02:50 | NUR ---
Patient brought in by daughter to ER s/p mechanical fall with 1cm laceration to left posterior occipital area, bleeding controlled. Denies KO, denies ALOC, denies N/V, denies blurry or double vision. Hx of dementia, oriented to person, unlabored breathing, no signs of acute distress.
--- NOTE | 2017-01-26 03:00 | NUR ---
ER MD Aleaxnder at bedside for evaluation
--- NOTE | 2017-01-26 03:34 | NUR ---
Patient has a 1 cm laceration to left occipital. Dr. Alexander applied 1 staple using sterile technique. Edges well approximated. Site cleansed with NS & iodine. No bleeding noted. Pt tolerated well.
[2017-01-26] MEDS ORDERED: BACITRACIN/POLYMYXIN B SULFATE 30 GM TOPICAL OINT. TP SCH (03:45)
[2017-01-26] MEDS ORDERED: BACITRACIN 1 GM OINT TP ONE (04:00)
[2017-01-26 04:35] VITALS: BP_SYST 122
--- NOTE | 2017-01-26 04:35 | NUR ---
Patient given written and verbal discharge instructions and verbalizes understanding. ER MD Alexander discussed with patient the results and treatment provided. Patient in stable condition. ID arm band removed. Patient educated on pain management and to follow up with PMD. Pain Scale 0/10. Opportunity for questions provided and answered.
--- NOTE | 2017-01-26 04:50 | NUR ---
Note undone in EDM - 01/26/17 at 0522 by MERRILL Patient brought in by daughter to ER s/p mechanical fall with 1cm laceration to left posterior occipital area, bleeding controlled. Denies KO, denies ALOC, denies N/V, denies blurry or double vision. Hx of dementia, oriented to person, unlabored breathing, no signs of acute distress.
== END 2017-01-26 04:35 | disposition home or self-care (01) ==
LOC: SED 02:37
DX: S01.01XA Laceration without foreign body of scalp, initial encounter (principal); K21.9 Gastro-esophageal reflux disease without esophagitis; I10 Essential (primary) hypertension; E11.9 Type 2 diabetes mellitus without complications; F03.90 Unspecified dementia, unspecified severity, without behavioral disturbance, psychotic disturbance, mood disturbance, and anxiety; Z88.0 Allergy status to penicillin; Z88.5 Allergy status to narcotic agent; Z88.2 Allergy status to sulfonamides; Z88.1 Allergy status to other antibiotic agents; Z79.899 Other long term (current) drug therapy; W22.8XXA Striking against or struck by other objects, initial encounter; Y93.89 Activity, other specified; Y92.89 Other specified places as the place of occurrence of the external cause; Y99.8 Other external cause status
CPT/HCPCS: 99283